=== PATIENT | female | born 1945 | race Caucasian/White ===

== ENCOUNTER 2018-09-03 00:22 | Inpatient (IN) | payer OTHER, MEDICARE ==
[~2018-09-03] VITALS: Ht 162.6 cm; Wt 67.1 kg
[2018-09-03 00:24] VITALS: BP_SYST 144
--- NOTE | 2018-09-03 00:24 | NUR ---
Placed in room 8 . Placed on hyster driver, blood pressure machine and pulse oximeter. To gown for exam. Side rails up. Report given to ALEXEY SCHWARZ.
--- NOTE | 2018-09-03 00:25 | NUR ---
Patient to ER bed 8 for evaluation.
--- NOTE | 2018-09-03 00:26 | NUR ---
YELENA Horowitz at bedside examining patient.
[2018-09-03] MEDS ORDERED: FAMOTIDINE 20 MG TABLET PO ONE (00:30)
--- NOTE | 2018-09-03 00:30 | NUR ---
Pt came to the ED for non-radiating epigastric ABD pain which started earlier today. Pts daughter reports that she had chills when she got home from work Denies n/v/d or fever. Denies having a BM since yesterday. Denies dysuria. No other complaints/injuries noted. Will cont. to monitor.
--- NOTE | 2018-09-03 00:49 | NUR ---
PT medicated with pepcid PO per MD order. Tolerated well. WIll cont. to monitor.
[2018-09-03 01:03] LABS: BASOPHILS % (AUTO) 0.2 % (0.0-2.0); EOSINOPHILS % (AUTO) 0.2 % (0.0-4.0); HEMATOCRIT 34.4 % (36-48); HEMOGLOBIN 11.3 g/dL (12.0-16.0); LYMPHOCYTES # (AUTO) 0.4 K/uL (1.0-5.5); LYMPHOCYTES % (AUTO) 2.6 % (20.5-51.5); MEAN CORPUSCULAR HEMOGLOBIN 27 pg (27-31); MEAN CORPUSCULAR HGB CONC 33 % (32-36); MEAN CORPUSCULAR VOLUME 81 fL (79.0-98.0); MONOCYTES # (AUTO) 0.6 K/uL (0.0-1.0); MONOCYTES % (AUTO) 4.1 % (1.7-9.3); NEUTROPHILS # (AUTO) 12.9 K/uL (1.8-7.7); NEUTROPHILS % (AUTO) 92.9 % (40.0-70.0); PLATELET COUNT (AUTO) 274 K/uL (130-430); RED BLOOD CELL COUNT(AUTO) 4.26 MIL/uL (4.2-6.2); RED CELL DISTRIBUTION WIDTH 13.9 % (9.0-15.0); WHITE BLOOD COUNT (AUTO) 13.9 K/uL (4.8-10.8)
[2018-09-03 01:07] LABS: ANION GAP 11 (5-15); CALCIUM 8.2 mg/dL (8.4-11.0); CHLORIDE 90 mmol/L (98-107); GLUCOSE 137 mg/dL (70-99); POTASSIUM 3.1 mmol/L (3.5-5.1); SODIUM SERUM 124 mmol/L (136-145); UREA NITROGEN, BLOOD 16 mg/dL (8-21)
[2018-09-03 01:13] LABS: ALANINE AMINOTRANSFERASE 197 U/L (12-78); ALBUMIN 2.9 g/dL (3.4-4.8); ASPARTATE AMINOTRANSFERASE 151 U/L (10-37); LIPASE 102 U/L (73-393); TOTAL BILIRUBIN 3.9 mg/dL (0.0-1.0)
[2018-09-03] MEDS ORDERED: NACL 0.9% 1,000 ML IV ONE (01:30)
[2018-09-03] MEDS ORDERED: MORPHINE 4 MG/ML INJ. SYRINGE IVP ONE (01:30)
--- NOTE | 2018-09-03 01:43 | NUR ---
Pt started on NS per MD order. Tolerated well. Will cont. to monitor.
[2018-09-03 01:45] LABS: BILIRUBIN,URINE 2+ (NEGATIVE); BLOOD, URINE 2+ (NEGATIVE); CLARITY/URINE CLEAR (CLEAR); COLOR,URINE ORANGE (YELLOW); GLUCOSE,URINE NEGATIVE (NEGATIVE); KETONES,URINE 3+ (NEGATIVE); LEUKOCYTE ESTERASE ,URINE 3+ (NEGATIVE); NITRITE, URINE NEGATIVE (NEGATIVE); PROTEIN URINE 1+ (NEGATIVE)
[2018-09-03] MEDS ORDERED: KCL 20 mEq in 100 mL (PREMIX) 100 ML IV ONE (01:45)
[2018-09-03 01:54] LABS: BACTERIA,URINE FEW /HPF (None Seen); WBC,URINE 50-80 /HPF (0-3)
[2018-09-03] MEDS ORDERED: KETOROLAC TROMETHAMINE 15 MG VIAL IVP ONE (02:00)
--- NOTE | 2018-09-03 02:04 | NUR ---
Pt medicated with Toradol IVP per MD order. Tolerated well. Will cont. to beny.
[2018-09-03 02:06] LABS: INR 1.1 (0.8-1.2); PROTHROMBIN TIME 11.6 SECS (9.5-12.5)
--- NOTE | 2018-09-03 02:17 | NUR ---
Pt medicated with levaquin IV per MD order. Tolerated well. Will cont. to monitor.
[2018-09-03] MEDS ORDERED: LORazepam 2 MG/ML VIAL IVP PRN (02:30)
[2018-09-03] MEDS ORDERED: MUPIROCIN 2% TOPICAL OINTMENT 22 GM TP PRN (02:30)
[2018-09-03] MEDS ORDERED: DOCUSATE SODIUM 100 MG CAPSULE PO PRN (02:30)
[2018-09-03] MEDS ORDERED: KETOROLAC TROMETHAMINE 15 MG VIAL IVP PRN (02:30)
[2018-09-03] MEDS ORDERED: MORPHINE 4 MG/ML INJ. SYRINGE IVP PRN (02:30)
[2018-09-03] MEDS ORDERED: ONDANSETRON HCL 4 MG/2 ML VIAL IVP PRN (02:30)
[2018-09-03] MEDS ORDERED: ZOLPIDEM TARTRATE 5 MG TABLET PO PRN (02:30)
[2018-09-03] MEDS ORDERED: HYDROcodone/ACETAMIN 5-325 MG TAB (NORCO/ VICODIN) PO PRN (02:30)
[2018-09-03] MEDS ORDERED: MILK OF MAGNESIA 30 ML UDC PO PRN (02:30)
[2018-09-03] MEDS ORDERED: ACETAMINOPHEN 325 MG TABLET PO PRN (02:30)
--- NOTE | 2018-09-03 02:35 | NUR ---
Patient will be admitted to care of Dr. Gong. Admitted to Med surg unit. Will go to room 135. Belongings list completed. Summary report printed. Report will be given at bedside.
[2018-09-03 02:58] VITALS: BP_SYST 129
--- NOTE | 2018-09-03 02:58 | NUR ---
Shannon weiss in ED - 09/03/18 at 0328 by JENA Transfer to Med surg. Licensed nurse present. IV present no signs or symptoms of infiltration.
--- NOTE | 2018-09-03 02:58 | NUR ---
Transfer to Med surg. Licensed nurse present. IV present no signs or symptoms of infiltration.
--- NOTE | 2018-09-03 02:58 | NUR ---
ADMISSION NOTE Received patient from ER via christian, received report from CHONG BLACKBURN. Patient admitted with diagnosis of ABDOMINAL PAIN, HYPONATREMIA. Patient oriented to hospital routine, call light, toileting and safety-patient verbalized understanding.
--- NOTE | 2018-09-03 03:00 | NUR ---
Endorsed to next nurse to continue Potassium on IV pump.
[2018-09-03] MEDS: D5NS 1,000 ML IV SCH ×3 (04:09→23:18)
--- NOTE | 2018-09-03 04:10 | NUR ---
INITIAL NOTE AT INITIAL ASSESSMENT, PATIENT IS RESTING IN BED, STABLE, NO SIGNS OF RESPIRATORY DISTRESS. PATIENT VERBALIZES NO PAIN. DAUGHTER DAHLIA IS AT BEDSIDE AND IS HELPING WITH TRANSLATION. PLAN OF CARE FOR THE EVENING IS COMMUNICATED WITH THE PATIENT. CALL LIGHT- TEACH BACK IS SUCCESSFUL. BED IS LOCKED, ALARMED, AND AT THE LOWEST LEVEL. FALL AND SAFETY PRECAUTIONS WILL BE TAKEN THROUGHOUT THE SHIFT. PATIENT WILL BE KEPT NPO THROUGHOUT THE SHIFT.
[2018-09-03 04:17] LABS: ANION GAP 7 (5-15); CALCIUM 7.8 mg/dL (8.4-11.0); CHLORIDE 92 mmol/L (98-107); CREATININE 0.79 mg/dL (0.55-1.30); GLUCOSE 132 mg/dL (70-99); POTASSIUM 3.2 mmol/L (3.5-5.1); SODIUM SERUM 123 mmol/L (136-145); UREA NITROGEN, BLOOD 12 mg/dL (8-21)
[2018-09-03 04:38] LABS: PHOSPHORUS 1.7 mg/dL (2.7-4.5); THYROID STIMULATING HORMONE 1.48 uIu/mL (0.36-3.74)
--- NOTE | 2018-09-03 04:57 | NUR ---
CONSULTATION PAGED/CALLED Reason for Consultation: EPIGASTRIC PAIN, TRANSAMINITIS Person Who was Notified: KERRY Consulting Physician: DR. VARGAS; BLASTING CONTRACT MAN - DR. CARLTON Upholstery Auto Trimmer Specialty: GI Ordering Physician: DR. BOSE
--- NOTE | 2018-09-03 05:08 | NUR ---
NOTE PATIENT IS SLEEPING, STABLE, NO SIGNS OF RESPIRATORY DISTRESS. CALL LIGHT WITHIN REACH. BED IS LOCKED, ALARMED, AND AT THE LOWEST LEVEL.
[2018-09-03 05:16] LABS: CHOLESTEROL 142 mg/dL (<200); HDL CHOLESTEROL 21 mg/dL (>55); LDL CHOLESTEROL 91 mg/dL (<100); TRIGLYCERIDES 102 mg/dL (30-150)
--- NOTE | 2018-09-03 05:35 | NUR ---
DR. DUKE AT BEDSIDE MD AT BEDSIDE SPEAKING TO THE PATIENT AT THIS TIME.
[2018-09-03] MEDS ORDERED: cloNIDine HCL 0.1 MG TABLET PO PRN (05:45)
--- NOTE | 2018-09-03 06:53 | NUR ---
CLOSING NOTE PATIENT IS SLEEPING, STABLE, NO SIGNS OF RESPIRATORY DISTRESS. BED IS LOCKED, ALARMED, AND AT THE LOWEST LEVEL. FALL, AND SAFETY PRECAUTIONS HAVE BEEN IN PLACE THROUGHOUT THE NIGHT. ALL NEEDS MET. WILL CONTINUE TO MONITOR UNTIL SHIFT REPORT IS GIVEN AT BEDSIDE TO AM NURSE.
[2018-09-03 07:22] LABS: BILIRUBIN,DIRECT 2.6 mg/dL (0.0-0.3)
[2018-09-03 08:00] VITALS: BP_SYST 115
--- NOTE | 2018-09-03 08:00 | NUR ---
RN OPENING NOTE PATIENT IS RESTING ON BED, ALERT ORIENTEDX4, PLEASANT, PATIENT DENIES PAIN OR DISCOMFORT. PATIENT WAS ASSESSED, VITAL SIGNS ARE STABLE. BED AT LOW POSITION, CALL LIGHT WITHIN REACH, BED ALARM IS ON, WILL CONTINUE TO MONITOR.
[2018-09-03] MEDS ORDERED: cefTRIAXone 1 GM in D5W 50 ML IV SCH (09:00)
[2018-09-03] MEDS: LACTOBACILLUS RHAMNOSUS GG 1 CAP CAPSULE PO SCH (09:05)
[2018-09-03] MEDS: SIMETHICONE 80 MG TAB.CHEW PO SCH ×3 (09:05→20:39)
[2018-09-03] MEDS: HEPARIN SODIUM,PORCINE 5000 UNITS/ML VIAL SUBCUT SCH ×2 (09:07→20:42)
[2018-09-03] MEDS ORDERED: K PHOS 30 MM in NS 250 ML IV ONE (09:15)
[2018-09-03] MEDS ORDERED: POTASSIUM CHLORIDE 20 MEQ TAB.PRT.SR PO ONE (09:15)
--- NOTE | 2018-09-03 10:00 | NUR ---
RN NOTE PATIENT'S GOT HER MEDICATIONS. PATIENT DENIES PAIN OR DISCOMFORT. PATIENT WAS ASSISTED TO AMBULATE TO THE BATHROOM WHEN SHE VOIDED AND THEN RETURNED BACK TO THE BED, WILL CONTINUE TO MONITOR.
[2018-09-03 11:33] VITALS: BP_SYST 138
--- NOTE | 2018-09-03 12:00 | NUR ---
RN NOTE PATIENT RESTING ON BED, PATIENT WAS GIVEN HER MEDICATION. PATIENT DENIES PAIN OR DISCOMFORT. WILL CONTINUE TO MONITOR.
[2018-09-03] MEDS: PIPERACILLIN/TAZO 3.375/DEX-IS 50 ML IV SCH ×3 (12:03→23:18)
--- NOTE | 2018-09-03 14:00 | NUR ---
RN NOTE PATIENT UNDERGONE RENAL US IMAGING, PATIENT TOLERATED THE PROCEDURE VERY WELL. WILL FOLLOW UP ON THE RESULTS.
--- NOTE | 2018-09-03 16:00 | NUR ---
RN NOTE PATIENT RESTING ON BED, FAMILY MEMBERS BY BEDSIDE, PATIENT WAS EDUCATED ABOUT FALL PREVENTION. PATIENT DENIES PAIN OR DISCOMFORT PATIENT WAS AMBULATED TO THE BATHROOM, WILL CONTINUE TO MONITOR.
[2018-09-03 16:02] VITALS: BP_SYST 143
[2018-09-03 16:26] LABS: ANION GAP 8 (5-15); CALCIUM 8.3 mg/dL (8.4-11.0); CHLORIDE 95 mmol/L (98-107); CREATININE 0.53 mg/dL (0.55-1.30); GLUCOSE 97 mg/dL (70-99); SODIUM SERUM 126 mmol/L (136-145); UREA NITROGEN, BLOOD 9 mg/dL (8-21)
[2018-09-03 16:31] LABS: POTASSIUM 4.5 mmol/L (3.5-5.1)
--- NOTE | 2018-09-03 18:00 | NUR ---
RN CLOSING NOTE PATIENT IS RESTING ON BED, FAMILY MEMBERS BY THE BEDSIDE, PATIENT IV SALINE LOCK WAS REINFORCED. PATIENT WAS GIVEN HER IVPB OF ANTIBIOTICS. PATIENT DENIES PAIN OR DISCOMFORT. WILL CONTINUE TO MONITOR AND WILL ENDORSE TO NEXT SHIFT
[2018-09-03 20:00] VITALS: BP_SYST 150
--- NOTE | 2018-09-03 20:00 | NUR ---
Initial Notes Received patient resting in bed, awake, alert, oriented, family at bedside. Patient denies any acute distress or pain at this time. Vital signs stable. Breathing is even and unlabored. New IV access started left forearm #22, aseptic technique used, good blood return noted, flushes with ease. Previous IV accesses removed due to being positional. Needs addressed. Educated patient regarding use of call light for assistance and fall precautions, patient verbalized understanding. Call light in hand, fall precautions in place.
--- NOTE | 2018-09-03 21:00 | NUR ---
MRCP Consent Signed MRCP consent signed and MRI questionnaire completed by patient's daughter Kay Guerrero. Forms charted.
--- NOTE | 2018-09-03 22:00 | NUR ---
Nursing Notes Patient sitting up in bed, awake. Patient denies any acute distress or pain at this time. Breathing is even and unlabored. IV site patent/clean/dry. Needs addressed. Call light in hand, fall precautions in place. Will continue to monitor.
[2018-09-04] VITALS: BP_SYST 141
--- NOTE | 2018-09-04 | NUR ---
Nursing Notes Patient resting in bed with eyes closed, easily aroused. Patient denies any acute distress or pain. Breathing is even and unlabored. IV site patent/clean/dry. Assisted patient to restroom for toileting needs. Call light in hand, fall precautions in place.
--- NOTE | 2018-09-04 02:00 | NUR ---
Nursing Notes Patient resting in bed with eyes closed, easily aroused. Patient denies any acute distress or pain at this time. Breathing is even and unlabored. IV site patent/clean/dry. Patient denies any needs at this time. Call light in hand, fall precautions in place.
--- NOTE | 2018-09-04 04:27 | NUR ---
Nursing Notes Patient continues to be resting in bed with eyes closed. No acute distress noted, breathing is even and unlabored. IV site patent/clean/dry. Call light in hand, fall precautions in place. Will continue to monitor for changes and safety.
[2018-09-04] MEDS: PIPERACILLIN/TAZO 3.375/DEX-IS 50 ML IV SCH ×4 (05:07→23:45)
[2018-09-04] MEDS: NACL 0.9% 1,000 ML IV SCH ×2 (06:17→20:32)
--- NOTE | 2018-09-04 06:38 | NUR ---
Closing Notes Patent resting in bed with eyes closed, easily aroused. Patient denies any acute distress or pain at this time. Breathing is even and unlabored. IV site patent/clean/dry, no S/S infection/infiltration noted. Needs addressed throughout shift. Call light in hand, fall precautions in place. Will continue to monitor for changes and safety, and endorse all patient care/needs to oncoming nurse. Patient remains NPO.
[2018-09-04 07:40] VITALS: BP_SYST 148
--- NOTE | 2018-09-04 07:40 | NUR ---
INITIAL ROUNDS Received pt AAOx4, no s/s resp distress, no c/o pain or discomfort. Plan of care for the day reviewed with pt-pt verbalized her understanding. Pt NPO for MRCP today. IVF infusing well to LFA at ordered rate with no s/s infiltration to site. Pain management, Hyponatremia, skin and safety discussed-teach back done. Call light within reach.
[2018-09-04] MEDS: SIMETHICONE 80 MG TAB.CHEW PO SCH ×3 (09:00→20:32)
[2018-09-04] MEDS: LACTOBACILLUS RHAMNOSUS GG 1 CAP CAPSULE PO SCH (09:00)
[2018-09-04] MEDS: HEPARIN SODIUM,PORCINE 5000 UNITS/ML VIAL SUBCUT SCH ×2 (09:28→20:31)
[2018-09-04 10:22] LABS: BASOPHILS % (AUTO) 0.4 % (0.0-2.0); EOSINOPHILS # (AUTO) 0.1 K/uL (0.0-0.4); EOSINOPHILS % (AUTO) 1.6 % (0.0-4.0); HEMOGLOBIN 11.4 g/dL (12.0-16.0); MEAN CORPUSCULAR HEMOGLOBIN 27 pg (27-31); MEAN CORPUSCULAR HGB CONC 34 % (32-36); MEAN CORPUSCULAR VOLUME 81 fL (79.0-98.0); MONOCYTES # (AUTO) 0.5 K/uL (0.0-1.0); MONOCYTES % (AUTO) 10.7 % (1.7-9.3); NEUTROPHILS # (AUTO) 3.4 K/uL (1.8-7.7); NEUTROPHILS % (AUTO) 67.3 % (40.0-70.0); PLATELET COUNT (AUTO) 283 K/uL (130-430); RED BLOOD CELL COUNT(AUTO) 4.22 MIL/uL (4.2-6.2)
--- NOTE | 2018-09-04 10:26 | NUR ---
MONE/ Pt resting quietly in bed with no s/s resp distress, pt remains NPO. Pt seen earlier by Dr. Carmen and his associate-new lab orders given. Pt also seen earlier by Dr. Junior-order given for LFT panel. Needs met, call light within reach.
[2018-09-04 10:31] LABS: ALANINE AMINOTRANSFERASE 113 U/L (12-78); ALBUMIN 2.8 g/dL (3.4-4.8); ANION GAP 8 (5-15); ASPARTATE AMINOTRANSFERASE 55 U/L (10-37); BILIRUBIN,DIRECT 1.3 mg/dL (0.0-0.3); CALCIUM 8.5 mg/dL (8.4-11.0); CHLORIDE 100 mmol/L (98-107); CREATININE 0.77 mg/dL (0.55-1.30); GLUCOSE 93 mg/dL (70-99); POTASSIUM 3.9 mmol/L (3.5-5.1); SODIUM SERUM 131 mmol/L (136-145); TOTAL BILIRUBIN 1.8 mg/dL (0.0-1.0); UREA NITROGEN, BLOOD 7 mg/dL (8-21)
[2018-09-04 12:06] LABS: HEPATITIS A AB, IgM Negative (Negative); HEPATITIS B CORE AB, IgM Negative (Negative); HEPATITIS B SURFACE AG Negative (Negative)
--- NOTE | 2018-09-04 12:10 | NUR ---
ROUNDS/AMBULATION Pt ambulated to the bathroom with steady gait. No c/o pain or discomfort. due IVPB given as ordered. Pt remains NPO for MRCP today. Needs met, call light within reach.
--- NOTE | 2018-09-04 15:30 | NUR ---
PAGED Dr. Junior paged to inform him that pt refused the MRCP. awaiting call back.
--- NOTE | 2018-09-04 16:40 | NUR ---
INFORMED Dr. Junior informed that the pt refused the MRCP and the Ativan. Orders given for RUQ ABD ultrasound. US tech called and informed that pt has been NPO all day.
--- NOTE | 2018-09-04 19:05 | NUR ---
CLOSING NOTE Pt sitting up in bed with no s/s resp distress, no c/o pain or discomfort. IVF infusing well to LFA at ordered rate with no s/s infiltration to site. Pt tolerated her clear liquid dinner. Note pt unable to have abd ultrasound due to pt had some juice earlier despite being NPO. Pt to be NPO after midnight and will have the abd US in the morning. Needs met, call light within reach.
--- NOTE | 2018-09-04 19:20 | NUR ---
OPENING NOTE RECEIVED CARE OF PT AND BEDSIDE REPORT. PT RESTING IN BED WITH FAMILY AT BEDSIDE. IVF INFUSING AT ORDERED RATE. PT ENCOURAGED TO CALL FOR ANY ASSISTANCE. SAFETY PRECAUTIONS OBSERVED: BED IN LOWEST POSITION, CALL LIGHT WITH PT, SIDE RAILS UP X2, BED ALARM ON. WILL MONITOR.
[2018-09-04 20:00] VITALS: BP_SYST 136
--- NOTE | 2018-09-04 21:30 | NUR ---
RN ROUNDS PT RESTING IN BED WITH EYES CLOSED. SON IS AT BEDSIDE. VISIBLE SYMMETRICAL RISE AND FALL OF CHEST TO ROOM AIR. NO SIGNS OF ACUTE DISTRESS NOTED. SAFETY PRECAUTIONS IN PLACE. WILL MONITOR. Addendum: 09/05/18 at 0458 by Ofe Stone RN DAUGHTERS AND GRANDSONS AT BEDSIDE.
--- NOTE | 2018-09-04 23:34 | NUR ---
PAIN/MORPHINE ADMINISTERED PT REPORTING SEVERE FOOT PAIN. MORPHINE 2 MG IVP ADMINISTERED. EXPLAINED THE MEDICATION AND POTENTIAL SIDE EFFECTS TO THE PT. PT VERBALIZED UNDERSTANDING. SAFETY PRECAUTIONS IN PLACE. WILL MONITOR. Addendum: 09/05/18 at 0452 by Ofe Stone RN WRONG PATIENT ENTRY.
--- NOTE | 2018-09-05 | NUR ---
NPO AT MIDNIGHT PT EDUCATED REGARDING NPO STATUS FOR PROCEDURE. PT VERBALIZED UNDERSTANDING. NPO [place]E PLACED AT BEDSIDE. WILL MONITOR.
[2018-09-05 00:36] VITALS: BP_SYST 145
--- NOTE | 2018-09-05 01:40 | NUR ---
WOUND DRESSING CHANGE PT REPORTING THAT THE DRESSING COVERING HER WOUND FELL OFF. WOUND CARE PROVIDED. CLEANSED WITH NORMAL SALINE, COVERED WOUND BED WITH VENELEX, APPLIED SUREPREP TO PERIWOUND, COVERED WITH FOAM DRESSING. PT TOLERATED WELL. Addendum: 09/05/18 at 0452 by Ofe Stone RN WRONG PATIENT ENTRY.
--- NOTE | 2018-09-05 02:15 | NUR ---
AMBULATED TO RESTROOM PT AMBULATED TO RESTROOM WITH STEADY GAIT. PT TOLERATED ACTIVITY WELL, BREATHING IS UNLABORED TO ROOM AIR. PT DENIES PAIN OR DISCOMFORT. IVF INFUSING ORDERED. SAFETY PRECAUTIONS IN PLACE. WILL MONITOR.
--- NOTE | 2018-09-05 03:45 | NUR ---
RN ROUNDS PT RESTING IN BED WITH EYES CLOSED AND SON AT BEDSIDE. VISIBLE SYMMETRICAL RISE AND FALL OF CHEST TO ROOM AIR. IV IS SALINE LOCKED. NO SIGNS OF ACUTE DISTRESS NOTED AT THIS TIME. SAFETY PRECAUTIONS IN PLACE. WILL MONITOR. Addendum: 09/05/18 at 0452 by Ofe Stone RN WRONG PATIENT ENTRY.
--- NOTE | 2018-09-05 04:30 | NUR ---
AMBULATED TO RESTROOM PT AMBULATED TO RESTROOM WITH NURSE ASSIST. GAIT NOTED TO BE STEADY. PT TOLERATED ACTIVITY WELL. PT REPOSITIONED FOR COMFORT. IVF INFUSING AT ORDERED RATE. PT DENIES CURRENT PAIN. NO SOB NOTED. SAFETY PRECAUTIONS IN PLACE: BED IN LOWEST POSITION, CALL LIGHT WITH PT, SIDE RAILS UP X2, BED ALARM ON, PERSONAL ITEMS WITHIN REACH.
[2018-09-05] MEDS: PIPERACILLIN/TAZO 3.375/DEX-IS 50 ML IV SCH ×2 (05:21→13:04)
--- NOTE | 2018-09-05 06:20 | NUR ---
CLOSING NOTE PT SITTING UP IN CHAIR WITH SON AT BEDSIDE. NO ACUTE DISTRESS NOTED AT THIS TIME. BREATHING IS EVEN AND UNLABORED TO ROOM AIR. SAFETY PRECAUTIONS IN PLACE. ALL NEEDS MET DURING SHIFT. WILL ENDORSE CARE TO DAY SHIFT RN.
[2018-09-05 07:05] LABS: ANION GAP 9 (5-15); CALCIUM 8.3 mg/dL (8.4-11.0); CHLORIDE 102 mmol/L (98-107); CREATININE 0.75 mg/dL (0.55-1.30); GLUCOSE 86 mg/dL (70-99); POTASSIUM 3.3 mmol/L (3.5-5.1); SODIUM SERUM 134 mmol/L (136-145); UREA NITROGEN, BLOOD 6 mg/dL (8-21)
--- NOTE | 2018-09-05 07:15 | NUR ---
OPENING NOTE At initial assessment, patient is awake, alert and oriented x4, denies any pain/discomfort at this time. Breathing even and unlabored. IV site on the LFA 22 G patent and intact, NS infusing at 60 ml/hr. Safety and fall precautions in place, bed low and locked, side rails up x2, call light within reach, will continue to monitor.
[2018-09-05 07:34] LABS: BASOPHILS % (AUTO) 0.7 % (0.0-2.0); EOSINOPHILS # (AUTO) 0.1 K/uL (0.0-0.4); EOSINOPHILS % (AUTO) 2.5 % (0.0-4.0); HEMOGLOBIN 10.7 g/dL (12.0-16.0); LYMPHOCYTES # (AUTO) 1.4 K/uL (1.0-5.5); LYMPHOCYTES % (AUTO) 29.2 % (20.5-51.5); MEAN CORPUSCULAR HEMOGLOBIN 27 pg (27-31); MEAN CORPUSCULAR HGB CONC 33 % (32-36); MEAN CORPUSCULAR VOLUME 81 fL (79.0-98.0); MONOCYTES # (AUTO) 0.5 K/uL (0.0-1.0); MONOCYTES % (AUTO) 10.9 % (1.7-9.3); NEUTROPHILS # (AUTO) 2.9 K/uL (1.8-7.7); NEUTROPHILS % (AUTO) 56.7 % (40.0-70.0); PLATELET COUNT (AUTO) 298 K/uL (130-430); RED BLOOD CELL COUNT(AUTO) 3.97 MIL/uL (4.2-6.2); RED CELL DISTRIBUTION WIDTH 13.8 % (9.0-15.0); WHITE BLOOD COUNT (AUTO) 4.9 K/uL (4.8-10.8)
[2018-09-05 08:04] VITALS: BP_SYST 145
[2018-09-05] MEDS: LACTOBACILLUS RHAMNOSUS GG 1 CAP CAPSULE PO SCH (08:09)
[2018-09-05] MEDS: SIMETHICONE 80 MG TAB.CHEW PO SCH (08:09)
[2018-09-05] MEDS: HEPARIN SODIUM,PORCINE 5000 UNITS/ML VIAL SUBCUT SCH (08:12)
[2018-09-05 09:23] LABS: ALBUMIN 2.6 g/dL (3.4-4.8); BILIRUBIN,DIRECT 0.8 mg/dL (0.0-0.3); TOTAL BILIRUBIN 1.2 mg/dL (0.0-1.0)
--- NOTE | 2018-09-05 11:07 | NUR ---
DR. LANDON AT THE BEDSIDE Dr. Landon seen and examined the patient at the bedside.
[2018-09-05] MEDS ORDERED: POTASSIUM CHLORIDE 20 MEQ TAB.PRT.SR PO ONE (11:15)
[2018-09-05] MEDS ORDERED: CIPR-211 PO (11:16)
--- NOTE | 2018-09-05 11:20 | NUR ---
ROUNDS/DC ORDER Patient is awake, denies any pain/discomfort at this time. Breathing even and unlabored. IVF infusing as ordered. IV site patent and intact, no s/s of infection/infiltration. AM meds taken as ordered and tolerated well. Informed patient regarding D/C order and patient agreed. Attempted to call son, Miller Messina x2, but unable to speak with him and to leave a message, will try again later. Safety and fall precautions observed, call light within reach, will continue to monitor.
[2018-09-05 12:36] VITALS: BP_SYST 154
[2018-09-05 12:45] VITALS: BP_SYST 152
--- NOTE | 2018-09-05 13:30 | NUR ---
SPOKE WITH DAUGHTER Daughter called and spoke with her and informed her regarding patient's being discharged. Per daughter, she will have son to come slate picker patient. Daughter able to talk to the patient as well.
--- NOTE | 2018-09-05 14:30 | NUR ---
ROUNDS Patient is awake, denies any pain/discomfort. No respiratory distress noted. Still awaiting for family to come pick her up. Safety precautions in place. Call light within reach, will continue to monitor.
--- NOTE | 2018-09-05 15:55 | NUR ---
D/C Patient Patient given medication reconciliation form and D/C instructions. Exit Care provided. Patient verbalized understanding. MD discussed with patient the results and treatment provided. Ambulatory with steady gait for discharge to home. Patient in stable condition, ID band removed. IV catheter removed, intact and dressing applied, no active bleeding. Patient educated to follow up with primary care provider and verbalized understanding. All belongings sent with patient. Patient assisted out via wheelchair and accompanied by patient's nephew.
--- NOTE | 2018-09-07 14:35 | NUR ---
Discharge Follow Up Phone Call [employer]TER phoned patient, , and spoke with patient's daughter. She stated that patient was doing fine. They filled her prescription for Cipro and patient is taking her medications as directed. She has a follow up appointment with her PCP next week. She had a question about GI follow up and testing. OVER[employer] SLEEVE SETTER suggested she obtain patient's complete medical record, which may assist in obtaining and expediting GI follow up. Will remain available upon request.
== END 2018-09-05 15:55 | disposition home or self-care (01) | DRG 720 ==
LOC: SED 00:22 → SMU 02:22
PROVIDERS: ADMIT Family Medicine; ATTEND Family Medicine
DX: A41.9 Sepsis, unspecified organism (principal); E44.0 Moderate protein-calorie malnutrition; E11.65 Type 2 diabetes mellitus with hyperglycemia; E83.39 Other disorders of phosphorus metabolism; D64.9 Anemia, unspecified; N39.0 Urinary tract infection, site not specified; E87.1 Hypo-osmolality and hyponatremia; E87.6 Hypokalemia; K52.9 Noninfective gastroenteritis and colitis, unspecified; K80.50 Calculus of bile duct without cholangitis or cholecystitis without obstruction; I10 Essential (primary) hypertension; R74.0 Nonspecific elevation of levels of transaminase and lactic acid dehydrogenase [LDH]; E66.9 Obesity, unspecified; Z90.49 Acquired absence of other specified parts of digestive tract
CPT/HCPCS: 36415; 71045; 76700-TC; 76770; 80048; 80053; 80061; 80074; 80076; 81000-TC; 82247-TC; 82248-TC; 83036; 83605; 83690-TC; 83735-TC; 83880; 84100-TC; 84443-TC; 85025; 85610-TC; 85730-TC; 87040-TC; 87086; 93005; 96365; 96366; 96367; 96375; 99285; J0696; J1644; J1885; J1956; J2270; J2543; J3480; J7030; J7042; J7050; J7060